=== PATIENT | female | born 1945 | race African-American/Black ===

== ENCOUNTER 2016-08-26 10:22 | Outpatient (CLI) | payer MEDICARE, OTHER ==
[2016-08-26 12:42] LABS: ALT (SGPT) 10 U/L (0-55); AST (SGOT) 18 U/L (5-34); Albumin 4.3 g/dL (3.4-4.8); Alkaline Phosphatase 63 U/L (40-150); Anion Gap 16 mmol/L (10-20); BUN (Urea Nitrogen) 7 mg/dL (9.8-20.1); Bilirubin, Total 0.5 mg/dL (0.2-1.2); Calc. Creatinine Clearance 0 mL/min (70-130); Calcium 9.5 mg/dL (7.8-10.44); Carbon Dioxide 21 mmol/L (23-31); Cardiac Risk 3.2 (Less than 4.5); Chloride 107 mmol/L (98-107); Cholesterol 159 mg/dL (< 200 Desired); Estimated GFR-MDRD 75; Globulin 3.1 g/dL (2.4-3.5); Glucose 94 mg/dL (80-115); HDL Cholesterol 49 mg/dL (>60 Neg Risk); Hemoglobin A1c 5.5 % (4.0-6.0); Iron 27 ug/dL (50-170); LDL Cholesterol, Calculated 85 mg/dL; Potassium 3.9 mmol/L (3.5-5.1); Protein, Total 7.4 g/dL (5.8-8.1); Sodium 140 mmol/L (136-145); Triglycerides 124 mg/dL (Less than 150)
[2016-08-26 12:44] LABS: #Basophils 0.1 thou/uL (0.0-0.2); #Eosinphils 0.7 thou/uL (0.0-0.7); #Lymphocytes 1.7 thou/uL (1.20-3.40); #Monocytes 0.3 thou/uL (0.11-0.59); #Neutrophils 1.9 thou/uL (1.40-6.50); %Basophils 2.2 % (0.0-1.0); %Eosinophils 14.6 % (0.0-10.0); %Lymphocytes 36.3 % (21.0-51.0); %Monocytes 6.1 % (0.0-10.0); %Neutrophils 40.8 % (42.0-75.0); Anisocytosis MODERATE=16-30 cells (100X) (0-5/hpf); Hemoglobin 9.8 g/dL (12.0-16.0); Hypochromia SLIGHT = 6-15 cells (100X) (0-5/hpf); MDiff Complete? YES; Mean Corpuscular HGB CONC 30.8 g/dL (32.0-36.0); Mean Corpuscular Hemoglobin 24.1 pg (27.0-31.0); Mean Corpuscular Volume 78.2 fl (81.0-99.0); Mean Platelet Volume 5.9 fL (7.4-10.4); Microcytosis SLIGHT = 6-15 cells (100X) (0-5/hpf); Ovalocytes SLIGHT = 2-5 cells (100X) (0-1/hpf); Platelet Count 346 thou/uL (130-400); Red Blood Cell (RBC) Count 4.07 mill/uL (4.20-5.40); Target Cells SLIGHT = 2-5 cells (100X) (0-1/hpf); White Blood Cell (WBC) Count 4.8 thou/uL (4.8-10.8)
== END 2016-08-26 10:23 | disposition home or self-care (01) ==
LOC: NAVSJIPCSP 10:22
PROVIDERS: ATTEND Family Medicine
DX: E78.5 Hyperlipidemia, unspecified (principal); I10 Essential (primary) hypertension; E11.9 Type 2 diabetes mellitus without complications; D50.9 Iron deficiency anemia, unspecified
CPT/HCPCS: 36415; 80053; 80061; 82728; 83036; 83540; 85025

== ENCOUNTER 2018-09-29 12:51 | Emergency (ER) | payer MEDICARE, OTHER ==
--- NOTE | 2018-09-29 13:33 | RAD ---
Right foot 3 views INDICATION: Right foot pain after dropping a 5 pound ham on the right foot COMPARISON: None FINDINGS: The toes are held in flexion slightly limiting the exam. No acute fracture or subluxation i s evident. 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 Lisfranc alignment is preserved. IMPRESSION: No acute osseous abnormality.
== END 2018-09-29 13:40 | disposition home or self-care (01) ==
LOC: NAV ERS 12:51
DX: S90.31XA Contusion of right foot, initial encounter (principal); I10 Essential (primary) hypertension; E78.00 Pure hypercholesterolemia, unspecified; E11.9 Type 2 diabetes mellitus without complications; Z86.73 Personal history of transient ischemic attack (TIA), and cerebral infarction without residual deficits; Z87.891 Personal history of nicotine dependence; W20.8XXA Other cause of strike by thrown, projected or falling object, initial encounter